=== PATIENT | female | born 1965 | race Two or more races ===

== ENCOUNTER 2016-12-30 17:22 | Emergency (ER) | payer SELFPAY ==
[~2016-12-30] VITALS: Ht 152.4 cm; Wt 66.7 kg
[2016-12-30 17:35] VITALS: BP 148/91
[2016-12-30] MEDS ORDERED: HYDROcodone-ACET 10/325MG TAB PO ONE (19:00)
[2016-12-30] MEDS ORDERED: KETOROLAC TROMETH 60MG/2ML VIAL IM ONE (19:00)
== END 2016-12-30 20:37 | disposition home or self-care (01) ==
LOC: ER 17:43
DX: M25.511 Pain in right shoulder (principal); M54.9 Dorsalgia, unspecified; E11.9 Type 2 diabetes mellitus without complications; I10 Essential (primary) hypertension; Z90.710 Acquired absence of both cervix and uterus; V43.62XA Car passenger injured in collision with other type car in traffic accident, initial encounter; Y93.89 Activity, other specified; Y99.8 Other external cause status; Y92.488 Other paved roadways as the place of occurrence of the external cause
CPT/HCPCS: 72125; 82962; 96372; 99284; J1885